=== PATIENT | male | born 1960 | race African-American/Black ===

== ENCOUNTER 2019-03-16 13:02 | Inpatient (IN) | payer OTHER ==
[2019-03-16 16:05] VITALS: BMI 25.7
--- NOTE | 2019-03-16 17:13 | HP ---
COWS - Scale Resting Pulse: 0= [place] 80 or Below Sweatin= Chills/Flushing Restless Observation: 1= Difficult to Sit Still Pupil Size: 1= Pupils >than Normal Bone or Joint Aches: 2= Severe Diffuse Aches Runny Nose/ Eye Tearin= Runny Nose/Eyes GI Upset > 30mins: 1= Stomach Cramp Tremor Observation: 1= Tremor [place], Not Seen Yawning Observation: 1= 1-2x During Session Anxiety or Irritability: 2=Irritable/Anxious Goose Flesh Skin: 0=Smooth Skin COWS Score: 12 CIWA Score - Admission Criteria OASAS Guidelines: Admission for Medically Managed Detox: Requires at least one of the followin. CIWA greater than 12 2. Seizures within the past 24 hours 3. Delirium tremens within the past 24 hours 4. Hallucinations within the past 24 hours 5. Acute intervention needed for co occurring medical disorder 6. Acute intervention needed for co occurring psychiatric disorder 7. Severe withdrawal that cannot be handled at a lower level of care (continued vomiting, continued diarrhea, abnormal vital signs) requiring intravenous medication and/or fluids 8. Admission ROS [facility] Chief Complaint: " I am dope sick" Allergies/Adverse Reactions: Allergies Allergy/AdvReac Type Severity Reaction Status Date / Time No Known Allergies Allergy Verified 03/16/19 15:59 History of Present Illness: 58 yo male with hx of nicotine, heroin (intranasal) and cocaine dependence is here seeking detox d/t withdrawal symptoms. PMHX: seizure d/o, last seizure seven months ago Psych: PTSD, Depression and Bipolar reports on meds meds has not taken meds in 10 days and unable to provide name of meds. Denies hx of overdose Denies SI/HI Exam Limitations: No Limitations - Ebola screening Have you traveled outside of the country in the last 21 days: No Have you had contact with anyone from an Ebola affected area: No Do you have a fever: No - Review of Systems Constitutional: Chills, Diaphoresis, Changes in sleep, Weakness EENT: reports: Nose Congestion Respiratory: reports: No Symptoms reported Cardiac: reports: No Symptoms Reported GI: reports: Poor Fluid Intake, Abdominal cramping : reports: No Symptoms Reported Musculoskeletal: reports: Joint Pain Integumentary: reports: Sweating Neuro: reports: Headache Endocrine: reports: Increased Hunger Hematology: reports: No Symptoms Reported Psychiatric: reports: Orientated x3, Agitated Other Systems: Reviewed and Negative Patient History - Patient Medical History Hx Anemia: No Hx Asthma: No Hx Chronic Obstructive Pulmonary Disease (COPD): No Hx Cancer: No Hx Cardiac Disorders: No Hx Congestive Heart Failure: No Hx Hypertension: No Hx Hypercholesterolemia: No Hx Pacemaker: No HX Cerebrovascular Accident: No Hx Seizures: Yes (seven months ago) Hx Dementia: No Hx Diabetes: No Hx Gastrointestinal Disorders: No Hx Liver Disease: No Hx Genitourinary Disorders: No Hx Sexually Transmitted Disorders: No Hx Renal Disease (ESRD): No Hx Thyroid Disease: No Hx Human Immunodeficiency Virus (HIV): No Hx Hepatitis C: No Hx Depression: No Hx Suicide Attempt: No Hx Bipolar Disorder: Yes Hx Schizophrenia: No - Patient Surgical History Past Surgical History: No - PPD History Previous Implant?: No Documented Results: Negative w/o proof PPD to be Administered?: Yes - Smoking Cessation Smoking history: Current every day smoker Have you smoked in the past 12 months: Yes Aproximately how many cigarettes per day: 20 Hx Chewing Tobacco Use: No Initiated information on smoking cessation: Yes 'Breaking Loose' booklet given: 03/16/19 - Substance & Tx. History Hx Alcohol Use: No Hx Substance Use: Yes Substance Use Type: Cocaine, Heroin Hx Substance Use Treatment: No ([facility]) - Substances abused Crack Substance route: Smoking Frequency: Daily Amount used: $100 Age of first use: 58 Date of last use: 03/15/19 Heroin Substance route: Inhalation Frequency: Daily Amount used: 10BAGS Age of first use: 35 Date of last use: 03/15/19 Family Disease History - Family Disease History Family History: Denies Admission Physical Exam [facility] - Vital Signs Vital Signs: Vital Signs - 24 hr 03/16/19 15:58 Temperature 98.0 F Pulse Rate 50 L Respiratory 18 Rate Blood Pressure 116/81 - Physical General Appearance: Yes: Disheveled, Thin, Irritable, Sweating HEENTM: Yes: EOMI, Hearing grossly Normal, Normal ENT Inspection, Normocephalic , Normal Voice, Pharynx Normal, Tm's normal, Other (cheilitis) Respiratory: Yes: Chest Non-Tender, Lungs Clear, Normal Breath Sounds, No Respiratory Distress, No Accessory Muscle Use Neck: Yes: Within Normal Limits Breast: Yes: Breast Exam Deferred Cardiology: Yes: Regular Rhythm, Regular Rate Abdominal: Yes: Normal Bowel Sounds, Non Tender, Flat, Soft Genitourinary: Yes: Within Normal Limits Back: Yes: Normal Inspection Musculoskeletal: Yes: full range of Motion, Gait Steady, Pelvis Stable Extremities: Yes: Normal Capillary Refill, Normal Inspection, Normal Range of Motion, Non-Tender Neurological: Yes: technical publications manager II-XII NML intact, Fully Oriented, Motor Strength 5/5, Depressed Affect Integumentary: Yes: Normal Color, Warm, Diaphoresis Lymphatic: Yes: Within Normal Limits - Diagnostic (1) Opioid dependence with withdrawal Current Visit: Yes Status: Acute (2) Seizure disorder Current Visit: Yes Status: Chronic (3) Nicotine dependence Current Visit: Yes Status: Chronic Qualifiers: Nicotine product type: cigarettes Cleared for Admission [facility] - Detox or Rehab [facility] Level of Care: Medically Managed Detox Regimen/Protocol: Methadone Breathalyzer - Breathalyzer Breathalyzer: 0 Urine Drug Screen - Test Device Lot number: [id number] Expiration date: 12/08/20 - Control Is test valid?: Yes - Results Drug screen NEGATIVE: No Urine drug screen results: THC-Marijuana, CROW-Cocaine, MOP-Opiates Inpatient Rehab Admission - Rehab Decision to Admit Inpatient rehab admission?: No
[2019-03-16] MEDS ORDERED: cloNIDine HCL 0.1 MG TABLET PO PRN (17:32)
[2019-03-16] MEDS ORDERED: MAGNESIUM CITRATE 300 ML BOTTLE PO PRN (17:35)
[2019-03-16] MEDS ORDERED: MENTHOL/PHENOL 1 EACH UD MM PRN (17:35)
[2019-03-16] MEDS ORDERED: ACETAMINOPHEN 325 MG TABLET (FP) PO PRN ×2 (17:35)
[2019-03-16] MEDS ORDERED: MAG HYDROX/AL HYDROX/SIMETH 30 ML UNIT-DOSE CUP PO PRN (17:35)
[2019-03-16] MEDS ORDERED: BISMUTH SUBSALICYLATE 524 MG/30 ML UD PO PRN (17:35)
[2019-03-16] MEDS ORDERED: METHOCARBAMOL 500 MG TABLET PO PRN (17:35)
[2019-03-16] MEDS ORDERED: MAGNESIUM HYDROX 2400MG/30ML ORAL SUSPENSION 30 ML CUP PO PRN (17:35)
[2019-03-16] MEDS ORDERED: NICOTINE POLACRILEX 2 MG GUM BUC PRN (17:35)
[2019-03-16] MEDS ORDERED: METHADONE (DETOX) 10 MG, METHADONE (DETOX) 5 MG PO ONE (18:45)
[2019-03-16] MEDS ORDERED: METHADONE HCL 5 MG TABLET (FOR DETOX USE ONLY) ONE (19:09)
[2019-03-16] MEDS ORDERED: METHADONE HCL 10 MG TABLET (FOR DETOX USE ONLY) ONE (19:09)
[2019-03-16] MEDS: diazePAM 5 MG TABLET PO PRN (19:20)
[2019-03-16] MEDS: THIAMINE HCL 100 MG TABLET (FP) PO SCH (22:22)
[2019-03-16] MEDS ORDERED: METHADONE HCL 5 MG TABLET (FOR DETOX USE ONLY) PO ONE (23:00)
[2019-03-16 23:19] LABS: PH,URINE 6.5 (5.0-8.0); URINE APPEARANCE CLEAR; URINE BILIRUBIN NEGATIVE (NEGATIVE); URINE COLOR YELLOW; URINE GLUCOSE (UA) NEGATIVE (NEGATIVE); URINE KETONE NEGATIVE (NEGATIVE); URINE LEUK ESTERASE NEGATIVE (NEGATIVE); URINE NITRITE NEGATIVE (NEGATIVE); URINE PROTEIN NEGATIVE (NEGATIVE); URINE UROBILINOGEN 0.2 mg/dL (0.2-1.0)
[2019-03-17] MEDS: diazePAM 5 MG TABLET PO PRN ×2 (06:40→18:44)
--- NOTE | 2019-03-17 09:23 | CONSULT ---
[facility] Psychiatric Consult - Data Date of interview: 03/17/19 Admission source: [facility] Identifying data: Mr Gr is a 58 years old Black, father of 2 children , retired as security, domiciled living with seeking detox treatment for opioid and cocaine Substance Abuse History: Reports history of heroin and crack cocaine use. Refer to addiction counselor's summary for further information Medical History: Significant for seizure disorder, history of childhood asthma. Smokes cigarettes 1 ppd Psychiatric History: Reports that his first psychiatric contact occured in 1998 while serving time in assisted([id number]). Reports that he was diagnosed with PTSD , Bipolar Disorder. Claims that he was given prescriptions for medications but he was unwilling to be on psychotropic medication in order to be alert while in assisted. He started taking medication in 2005 when he started receiving outpatient psychiaric treatment at [facility]. From 2005 to 1.5 month ago , he has attended several mental health clinics with most recent one being [facility] in [place]. Claims he ran out of medication 10 days ago. He has no recollection of any medications that he has ever been on including most recent one. No source of verification is available. Denies previous hospitalixzation or suicidal ideations. At present, denies experiencing psychotic, manic or depressive symptoms, S,H ideations. However, reports feeling anxious and sleeping poorly Physical/Sexual Abuse/Trauma History: Does not to discuss this topic al all Additional Comment: Reports history of 2 previous arrests including one felony conviction on charges of robbery/murder. Mental Status Exam - Mental Status Exam Alert and Oriented to: Time, Place, Person Cognitive Function: Fair Patient Appearance: Well Groomed Mood: Anxious Affect: Appropriate Speech Pattern: Clear Voice Loudness: Normal Thought Process: Intact, Goal Oriented Thought Disorder: Not Present Hallucinations: Denies Suicidal Ideation: Denies Homicidal Ideation: Denies Insight/Judgement: Poor Sleep: Poorly Appetite: Good Muscle strength/Tone: Normal Gait/Station: Normal Psychiatric Findings - Problem List (Waves 1, 2,3) (1) PTSD (post-traumatic stress disorder) Current Visit: Yes Status: Chronic (2) Mood disorder Current Visit: Yes Status: Chronic (3) Bipolar disorder Current Visit: Yes Status: Ruled-out (4) Substance-induced anxiety disorder Current Visit: Yes Status: Acute (5) Substance-induced sleep disorder Current Visit: Yes Status: Acute (6) Opioid dependence with withdrawal Current Visit: Yes Status: Acute (7) Cocaine dependence Current Visit: Yes Status: Acute (8) Nicotine dependence Current Visit: Yes Status: Chronic Qualifiers: Nicotine product type: cigarettes (9) Seizure disorder Current Visit: Yes Status: Chronic - Initial Treatment Plan Initial Treatment Plan: 1) Start Melatonin 5 mg po HS prn for insomnia. 2) Continue inpatient detoxification
[2019-03-17] MEDS ORDERED: METHADONE HCL 10 MG TABLET (FOR DETOX USE ONLY) ONE (09:34)
[2019-03-17] MEDS ORDERED: METHADONE HCL 5 MG TABLET (FOR DETOX USE ONLY) ONE (09:34)
--- NOTE | 2019-03-17 09:54 | PN ---
BHS COWS - Scale Resting Pulse: 0= [place] 80 or Below Sweatin= Chills/Flushing Restless Observation: 3= Extraneous Movement Pupil Size: 1= Pupils >than Normal Bone or Joint Aches: 2= Severe Diffuse Aches Runny Nose/ Eye Tearin= Runny Nose/Eyes GI Upset > 30mins: 2= Nausea/Diarrhea Tremor Observation of Outstretched Hands: 2= Slight Tremor Visible Yawning Observation: 2= >3x During Session Anxiety or Irritability: 2=Irritable/Anxious Goose Flesh Skin: 0=Smooth Skin COWS Score: 17 BHS Progress Note (SOAP) Subjective: alert,irritable,anxious,interrupted sleep,tremor,pain in the body and back Objective: 03/17/19 09:53 Vital Signs Temperature 97.7 F 03/17/19 09:43 Pulse Rate 65 03/17/19 09:43 Respiratory Rate 18 03/17/19 09:43 Blood Pressure 127/75 03/17/19 09:43 O2 Sat by Pulse Oximetry (%) 03/17/19 09:53 Laboratory Last Values Urine Color Yellow 03/16/19 22:30 Urine Appearance Clear 03/16/19 22:30 Urine pH 6.5 (5.0-8.0) 03/16/19 22:30 Ur Specific [place] 1.023 (1.010-1.035) 03/16/19 22:30 Urine Protein Negative (NEGATIVE) 03/16/19 22:30 Urine Glucose (UA) Negative (NEGATIVE) 03/16/19 22:30 Urine Ketones Negative (NEGATIVE) 03/16/19 22:30 Urine Blood Negative (NEGATIVE) 03/16/19 22:30 Urine Nitrite Negative (NEGATIVE) 03/16/19 22:30 Urine Bilirubin Negative (NEGATIVE) 03/16/19 22:30 Urine Urobilinogen 0.2 mg/dL (0.2-1.0) 03/16/19 22:30 Ur Leukocyte Esterase Negative (NEGATIVE) 03/16/19 22:30 labs pending Assessment: 03/17/19 09:53 withdrawal symptom Plan: continue detox
[2019-03-17 10:00] LABS: HEMOGLOBIN 13.3 GM/dL (11.7-16.9); MCH 32.8 pg (25.7-33.7); MCHC 33.3 g/dl (32.0-35.9); MEAN CELL VOLUME 98.5 fl (80-96); MEAN PLT VOLUME 10.1 fl (7.5-11.1); PLATELET COUNT 136 K/MM3 (134-434); RBC 4.07 M/mm3 (4.00-5.60); RDW 14.4 % (11.9-15.9); WHITE BLOOD COUNT 5.1 K/mm3 (4.0-10.0)
[2019-03-17] MEDS ORDERED: METHADONE (DETOX) 20 MG, METHADONE (DETOX) 5 MG PO ONE (10:00)
[2019-03-17] MEDS ORDERED: METHADONE HCL 10 MG TABLET (FOR DETOX USE ONLY) PO ONE (10:00)
[2019-03-17 10:23] LABS: ALBUMIN 3.7 g/dl (3.4-5.0); BILIRUBIN,TOTAL 0.4 mg/dL (0.2-1); CALCIUM 8.9 mg/dL (8.5-10.1); TOT PROT 6.6 g/dl (6.4-8.2)
[2019-03-17] MEDS: PRENATAL VITAMINS W/ FOLIC ACID TABLET (FP) PO SCH (10:31)
[2019-03-17] MEDS: NICOTINE 14 MG/24 HOURS TOPICAL PATCH TD SCH (10:32)
--- NOTE | 2019-03-17 14:51 | EKG ---
Test Reason : Blood Pressure : / mmHG Vent. Rate : 054 BPM Atrial Rate : 054 BPM P-R Int : 180 ms QRS Dur : 082 ms QT Int : 438 ms P-R-T Axes : 054 019 059 degrees QTc Int : 415 ms SINUS BRADYCARDIA NO PREVIOUS ECGS AVAILABLE Confirmed by VICKEY SOLO MD ([id number]) on 03/17/2019 2:51:06 PM Referred By: Confirmed By:VICKEY SOLO MD
[2019-03-17] MEDS: THIAMINE HCL 100 MG TABLET (FP) PO SCH (22:39)
[2019-03-17] MEDS: MELATONIN 5 MG TABLETS PO PRN (22:39)
[2019-03-18] MEDS: diazePAM 5 MG TABLET PO PRN ×3 (08:57→20:42)
[2019-03-18] MEDS: IBUPROFEN 400 MG TABLET (FP) PO PRN (08:57)
[2019-03-18] MEDS ORDERED: METHADONE HCL 10 MG TABLET (FOR DETOX USE ONLY) PO ONE (10:00)
--- NOTE | 2019-03-18 10:45 | PN ---
BHS COWS - Scale Resting Pulse: 0= [place] 80 or Below Sweatin= Beads of Sweat on Face Restless Observation: 1= Difficult to Sit Still Pupil Size: 0= Normal to Room Light Bone or Joint Aches: 4=Acute Joint/Muscle Pain Runny Nose/ Eye Tearin= None GI Upset > 30mins: 0= None Tremor Observation of Outstretched Hands: 2= Slight Tremor Visible Yawning Observation: 1= 1-2x During Session Anxiety or Irritability: 1=Feels Anxious/Irritable Goose Flesh Skin: 0=Smooth Skin COWS Score: 12 BHS Progress Note (SOAP) Subjective: c/o sweats irritability,anxiety, interrupted sleep, and tremor. Objective: 03/18/19 10:41 Vital Signs 03/18/19 03/18/19 03/18/19 03:30 07:58 09:51 Temperature 97.9 F 97.9 F Pulse Rate 47 L 51 L Respiratory 18 17 18 Rate Blood Pressure 99/51 L 115/64 Assessment: 03/18/19 10:42 AOX3, in no respiratory distress, Full ROM, Ambulating in the unit. withdrawal symptoms. 03/18/19 10:43 Plan: continue detox increase fluids
[2019-03-18] MEDS: PRENATAL VITAMINS W/ FOLIC ACID TABLET (FP) PO SCH (10:52)
[2019-03-18] MEDS: NICOTINE 14 MG/24 HOURS TOPICAL PATCH TD SCH (10:52)
[2019-03-18] MEDS: MELATONIN 5 MG TABLETS PO PRN (21:55)
[2019-03-18] MEDS: THIAMINE HCL 100 MG TABLET (FP) PO SCH (21:55)
[2019-03-19] MEDS ORDERED: METHADONE HCL 5 MG TABLET (FOR DETOX USE ONLY) PO ONE (10:00)
[2019-03-19] MEDS: IBUPROFEN 400 MG TABLET (FP) PO PRN (10:23)
[2019-03-19] MEDS: diazePAM 5 MG TABLET PO PRN (10:23)
[2019-03-19] MEDS: NICOTINE 14 MG/24 HOURS TOPICAL PATCH TD SCH (10:24)
[2019-03-19] MEDS: PRENATAL VITAMINS W/ FOLIC ACID TABLET (FP) PO SCH (10:24)
[2019-03-19] MEDS ORDERED: AMOX TR/POT CLAV 875MG/125MG TABLETS (FP) PO ONE (11:14)
--- NOTE | 2019-03-19 15:31 | PN ---
BHS COWS - Scale Resting Pulse: 0= [place] 80 or Below Sweatin= Chills/Flushing Restless Observation: 0= Sits Still Pupil Size: 0= Normal to Room Light Bone or Joint Aches: 1= Mild Discomfort Runny Nose/ Eye Tearin= Nasal Congestion GI Upset > 30mins: 2= Nausea/Diarrhea Tremor Observation of Outstretched Hands: 1= Tremor [place], Not Seen Yawning Observation: 0= None Anxiety or Irritability: 2=Irritable/Anxious Goose Flesh Skin: 0=Smooth Skin COWS Score: 8 BHS Progress Note (SOAP) Subjective: Sweating, chills, tremor, interrupted sleep, angry, headache; requesting ensure. Patient requesting discharge tomorrow morning. Patient agreed to have methadone protocol decreased to accommodate discharge. Patient c/o foul smelling urine and left ear pain since admission. Patient stated he is feeling much better and doesn't need to stay here until Wednesday. Objective: 03/19/19 15:30 Last Vital Signs Temp Pulse Resp BP Pulse Ox 97.9 F 57 L 16 112/68 03/19/19 14:05 03/19/19 14:05 03/19/19 14:05 03/19/19 14:05 PE: Ears: left external canal mild to moderate erythema, unable to view both TMs due to cerumen impaction Noted with c/o pain when he pulled on left ear Laboratory Tests 03/16/19 03/17/19 03/17/19 22:30 07:00 07:00 WBC 5.1 RBC 4.07 Hgb 13.3 Hct 40.0 MCV 98.5 H MCH 32.8 MCHC 33.3 RDW 14.4 Plt Count 136 MPV 10.1 Sodium 142 Potassium 4.0 Chloride 107 Carbon Dioxide 27 Anion Gap 8 BUN 13 Creatinine 1.0 Est GFR (CKD-EPI)AfAm 95.73 Est GFR (CKD-EPI)NonAf 82.60 Random Glucose 100 Calcium 8.9 Total Bilirubin 0.4 AST 16 ALT 22 Alkaline Phosphatase 72 Total Protein 6.6 Albumin 3.7 Urine Color Yellow Urine Appearance Clear Urine pH 6.5 Ur Specific [place] 1.023 Urine Protein Negative Urine Glucose (UA) Negative Urine Ketones Negative Urine Blood Negative Urine Nitrite Negative Urine Bilirubin Negative Urine Urobilinogen 0.2 Ur Leukocyte Esterase Negative RPR Titer 03/17/19 07:00 WBC RBC Hgb Hct MCV MCH MCHC RDW Plt Count MPV Sodium Potassium Chloride Carbon Dioxide Anion Gap BUN Creatinine Est GFR (CKD-EPI)AfAm Est GFR (CKD-EPI)NonAf Random Glucose Calcium Total Bilirubin AST ALT Alkaline Phosphatase Total Protein Albumin Urine Color Urine Appearance Urine pH Ur Specific [place] Urine Protein Urine Glucose (UA) Urine Ketones Urine Blood Urine Nitrite Urine Bilirubin Urine Urobilinogen Ur Leukocyte Esterase RPR Titer Nonreactive Labs reviewed Assessment: 03/19/19 15:31 Withdrawal symptoms Noted with AOM and cerumen impaction Plan: Continue detox Encouraged PO water hydration AOM: augmentin 875mg PO q12hr x 10 days Rx sent to pharmacy for disp#17 Cerumen impaction: debrox 10 gtts each ear daily x 4 days Follow up with PCP post discharge Patient scheduled for discharge home tomorrow
[2019-03-19] MEDS ORDERED: CARBAMIDE PEROXIDE 6.5% OTIC 15 ML BOTTLE AU ONE (17:00)
[2019-03-19] MEDS: AMOX TR/POT CLAV 875MG/125MG TABLETS (FP) PO SCH (17:59)
[2019-03-19] MEDS: THIAMINE HCL 100 MG TABLET (FP) PO SCH (22:08)
[2019-03-19] MEDS: MELATONIN 5 MG TABLETS PO PRN (22:08)
[2019-03-20] MEDS ORDERED: METHADONE HCL 10 MG TABLET (FOR DETOX USE ONLY) PO ONE (06:00)
[2019-03-20] MEDS ORDERED: METHADONE HCL 5 MG TABLET (FOR DETOX USE ONLY) PO ONE (06:00)
[2019-03-20] MEDS: AMOX TR/POT CLAV 875MG/125MG TABLETS (FP) PO SCH (07:06)
[2019-03-20] MEDS ORDERED: CARBAMIDE PEROXIDE 6.5% OTIC 15 ML BOTTLE AU SCH (08:00)
[2019-03-20 09:03] VITALS: BP 136/76; PULSE 60; TEMP 97.5
--- NOTE | 2019-03-20 16:47 | DS ---
[facility] Detox Discharge Summary Admission Date: 03/16/19 Discharge Date: 03/20/19 - History Present History: Cocaine Dependence, Opioid Dependence Additional Comments: PATIENT GOING TO [facility] ([place], [place]) FOR AFTERCARE. PATIENT ADVISED TO HORTICULTURALIST PRESCRIPTION FOR ANTIBIOTIC (AUGMENTIN) PRESCRIBED FOR EAR INFECTION WHILE HE WAS ADMITTED FOR DETOX AT [facility] ([place], [place]) AND TO FINISH FULL SUPPLY OF MEDICATION AND TO FOLLOW-UP WITH HIS JOINERY PATTERNMAKER AFTER DISCHARGE FROM DETOX FOR FOLLOW-UP ASSESSMENT FOR EAR INFECTION. PATIENT VERBALIZED UNDERSTANDING OF ALL RECOMMENDATIONS PRESENTED TO HIM PRIOR TO DISCHARGE FORM DETOX UNIT. PATIENT WAS DISCHARGED FORM DETOX UNIT IN STABLE MEDICAL CONDITION. Pertinent Past History: Seizure Disorder, P.T.S.D., Depression, Bipolar Disorder, Mood Disorder, Nicotine Dependence. - Physical Exam Results Vital Signs: Vital Signs Temperature 97.5 F L 03/20/19 09:03 Pulse Rate 60 03/20/19 09:03 Respiratory Rate 18 03/20/19 09:03 Blood Pressure 136/76 03/20/19 09:03 O2 Sat by Pulse Oximetry (%) Pertinent Admission Physical Exam Findings: WITHDRAWAL SYMPTOMS. Laboratory Tests 03/16/19 03/17/19 03/17/19 22:30 07:00 07:00 WBC 5.1 RBC 4.07 Hgb 13.3 Hct 40.0 MCV 98.5 H MCH 32.8 MCHC 33.3 RDW 14.4 Plt Count 136 MPV 10.1 Sodium 142 Potassium 4.0 Chloride 107 Carbon Dioxide 27 Anion Gap 8 BUN 13 Creatinine 1.0 Est GFR (CKD-EPI)AfAm 95.73 Est GFR (CKD-EPI)NonAf 82.60 Random Glucose 100 Calcium 8.9 Total Bilirubin 0.4 AST 16 ALT 22 Alkaline Phosphatase 72 Total Protein 6.6 Albumin 3.7 Urine Color Yellow Urine Appearance Clear Urine pH 6.5 Ur Specific [place] 1.023 Urine Protein Negative Urine Glucose (UA) Negative Urine Ketones Negative Urine Blood Negative Urine Nitrite Negative Urine Bilirubin Negative Urine Urobilinogen 0.2 Ur Leukocyte Esterase Negative RPR Titer 03/17/19 07:00 WBC RBC Hgb Hct MCV MCH MCHC RDW Plt Count MPV Sodium Potassium Chloride Carbon Dioxide Anion Gap BUN Creatinine Est GFR (CKD-EPI)AfAm Est GFR (CKD-EPI)NonAf Random Glucose Calcium Total Bilirubin AST ALT Alkaline Phosphatase Total Protein Albumin Urine Color Urine Appearance Urine pH Ur Specific [place] Urine Protein Urine Glucose (UA) Urine Ketones Urine Blood Urine Nitrite Urine Bilirubin Urine Urobilinogen Ur Leukocyte Esterase RPR Titer Nonreactive LABS NOTED. - Treatment Hospital Course: Detox Protocol Followed, Detoxed Safely, Responded well, Discharged Condition Good Patient has Accepted a Rehab Referral to: PATIENT GOING TO [facility] ([place], [place]). - Medication Discharge Medications: Ambulatory Orders Amoxicillin/Potassium Clav [Augmentin 875-125 Tablet] 1 each PO BID #17 tablet 03/19/19 - Diagnosis (1) Opioid dependence with withdrawal Status: Acute (2) Nicotine dependence Status: Chronic Qualifiers: Nicotine product type: cigarettes Substance use status: uncomplicated Qualified Code(s): F17.210 - Nicotine dependence, cigarettes, uncomplicated (3) Seizure disorder Status: Chronic (4) Substance-induced anxiety disorder Status: Acute (5) Substance-induced sleep disorder Status: Acute (6) Mood disorder Status: Chronic (7) PTSD (post-traumatic stress disorder) Status: Chronic (8) Bipolar disorder Status: Ruled-out Qualifiers: Active/Remission status: remission status unspecified Qualified Code(s): F31.9 - Bipolar disorder, unspecified (9) Cocaine dependence Status: Acute Qualifiers: Substance use status: in withdrawal Qualified Code(s): F14.23 - Cocaine dependence with withdrawal - AMA Did Patient Leave Against Medical Advice: No
[2019-03-21] MEDS ORDERED: METHADONE HCL 5 MG TABLET (FOR DETOX USE ONLY) PO ONE (06:00)
== END 2019-03-20 09:16 | disposition home or self-care (01) | DRG 773 ==
LOC: YASAS 13:02 → Y6N 18:28
PROVIDERS: ADMIT Surgery; ATTEND Surgery
PROC: HZ2ZZZZ Detoxification Services for Substance Abuse Treatment (ICD-10-PCS; principal; 2019-03-16)
DX: F11.23 Opioid dependence with withdrawal (principal); F14.20 Cocaine dependence, uncomplicated; F17.210 Nicotine dependence, cigarettes, uncomplicated; F19.280 Other psychoactive substance dependence with psychoactive substance-induced anxiety disorder; F19.282 Other psychoactive substance dependence with psychoactive substance-induced sleep disorder; F39 Unspecified mood [affective] disorder; F43.10 Post-traumatic stress disorder, unspecified; F31.9 Bipolar disorder, unspecified; H66.92 Otitis media, unspecified, left ear; H61.23 Impacted cerumen, bilateral; Z86.69 Personal history of other diseases of the nervous system and sense organs
CPT/HCPCS: 36415; 80053; 81003; 85027; 86593; 93005; 93010